=== PATIENT | female | born 1995 | race Caucasian/White ===

== ENCOUNTER 2023-12-10 19:01 | Emergency (ER) | payer OTHER ==
[~2023-12-10] VITALS: Ht 175.3 cm; Wt 79.4 kg
[2023-12-10] MEDS ORDERED: TETRAcaine 5 ML BOTTLE ONE (20:31)
[2023-12-10] MEDS ORDERED: FLUORESCEIN SODIUM OPHTH 1 EA STRIP ONE (20:31)
[2023-12-10] MEDS: TETRACAINE HCL 0.5% OPHTALMIC 15 ML BOTTLE EACHEYE ONE (20:32)
[2023-12-10] MEDS: FLUORESCEIN SODIUM OPHTH 1 EA STRIP OP ONE (20:33)
[2023-12-10 20:52] VITALS: BP 133/69; TEMP 98.4; O2SAT 98
== END 2023-12-10 20:52 | disposition home or self-care (01) ==
LOC: ER 19:09
DX: H57.89 Other specified disorders of eye and adnexa (principal); Z77.098 Contact with and (suspected) exposure to other hazardous, chiefly nonmedicinal, chemicals; Z60.2 Problems related to living alone